=== PATIENT | male | born 1965 | race Caucasian/White ===

== ENCOUNTER 2021-01-19 10:22 | Outpatient (CLI) | payer OTHER, SELFPAY ==
--- NOTE | ~2021-01-19 | XR_ITS ---
XR lumbar spine min 4V DATE: 01/19/2021 11:21 INDICATION: Chronic bilateral lower back pain TECHNIQUE: AP, coned lateral lumbosacral views and flexion, extension and neutral upright lateral vie ws COMPARISON: None FINDINGS: There is minimal levoscoliosis of the lumbar spine. No fracture or bone destruction is evident. The lumbar pedicles are intact. There is minimal retrolisthesis at L3-4, stable in all positions. There is moderate degenerative disc disease of the lumbar spine, relatively sparing L5-S1. IMPRESSION: Moderate degenerative disc disease, with minimal retrolisthesis at L3-4 Minimal levoscoliosis Reviewed, dictated and finalized at location A.
--- NOTE | ~2021-01-19 | XR_ITS ---
XR thoracic spine 3V DATE: 01/19/2021 11:22 INDICATION: Thoracic spine pain TECHNIQUE: AP, lateral, swimmer views COMPARISON: None FINDINGS: There is minimal dextroscoliosis of the thoracic spine. There is degenerative spurring primarily at the mid and lower thoracic spine, including prominent daniel dging osteophytes. No fracture or bone destruction is evident. The thoracic pedicles are intact. No paraspinal soft tiss ue thickening. IMPRESSION: Minimal dextroscoliosis Degenerative spurring of the mid and lower thoracic spine Reviewed, dictated and finalized at location A.
== END 2021-01-19 10:23 | disposition home or self-care (01) ==
PROVIDERS: PCP Emergency Medicine; Visit Provider Emergency Medicine
DX: M54.5 Low back pain (principal); G89.29 Other chronic pain; M79.18 Myalgia, other site
CPT/HCPCS: 72072; 72110

== ENCOUNTER 2021-02-13 08:13 | Outpatient (CLI) | payer OTHER, SELFPAY ==
--- NOTE | ~2021-02-13 | MR_ITS ---
EXAMINATION: MR lumbar spine wo con EXAM DATE: 02/13/2021 10:09 INDICATION: Low back pain/middle back pain mid to low back pain x1yr, no known recent injury. TECHNIQUE: Multi-sequential, multiplanar MR images of the lumbar spine were obtained without contrast . Sagittal T1, T2, T2 fat saturation images. Axial T2 weighted images. Correlation is made to lumba r x-ray 01/19/2021. FINDINGS: Mild to moderate disc disease L2-S1. Vertebral body heights relatively well-maintained. The conus medullaris terminates at the L1 level and has normal signal intensity and morphology. The vanessa tebral bodies are aligned in the AP dimension. There are no suspicious marrow signal abnormalities. P araspinal soft tissue is unremarkable. Level by level evaluation: T12-L1: Disc does not extend beyond the endplate margin. Facet arthropathy: None. Neural foraminal stenosis: No stenosis. Central canal stenosis: No stenosis. L1-L2: Disc does not extend beyond the endplate margin. Facet arthropathy: Mild. Neural foraminal stenosis: No stenosis. Central canal stenosis: No stenosis. L2-L3: There is a mild diffuse disc bulge. Facet arthropathy: Mild. Neural foraminal stenosis: No stenosis. Central canal stenosis: No stenosis. L3-L4: There is a mild to moderate diffuse disc bulge. Facet arthropathy: Mild to moderate. Neural foraminal stenosis: Mild to moderate right, mild left. Central canal stenosis: Mild. L4-L5: There is a mild to moderate diffuse disc bulge. Facet arthropathy: Mild to moderate. Neural foraminal stenosis: Moderate bilateral. Central canal stenosis: Mild to moderate. L5-S1: There is a mild diffuse disc bulge. Facet arthropathy: Moderate to severe left, moderate right. Neural foraminal stenosis: Moderate left, mild to moderate right. Central canal stenosis: No stenosis. IMPRESSION: 1. Mild to moderate lumbar disc disease. 2. More advanced lower lumbar facet arthropathy. Reviewed, dictated and finalized at location A.
--- NOTE | ~2021-02-13 | MR_ITS ---
EXAMINATION: MR thoracic spine wo con EXAM DATE: 02/13/2021 10:10 INDICATION: Low back pain/middle back pain mid to low back pain x1yr. No known injury. TECHNIQUE: Multi-sequential, multiplanar MR images of the thoracic spine were obtained without contra st. Sagittal T1, T2, T2 fat saturation, axial T2 weighted images reviewed. There is no prior study for comparison. FINDINGS: There is mild to moderate mid and lower thoracic disc disease with small Schmorl's nodes an d some loss of these disc heights, small disc bulges. The thoracic central canal and neural foramen a re widely patent. The spinal cord signal intensity and intrinsic morphology is normal. In the right side of T9 vertebral body there is mild edema without acute fracture line identified, an d vertebral body height also appears maintained, but there potentially could be bone bruise or minima l compression causing this edema. The vertebral body marrow is otherwise normal in signal intensity. Paraspinal soft tissue is unremarkable. Mild diffuse thoracic facet arthropathy. IMPRESSION: 1. Mild edema mid left aspect of T9 vertebral body, could be bone contusion or minimal compression, but thoracic vertebral body heights are maintained. 2. Mild to moderate mid and lower thoracic disc disease. 3. Mild facet arthropathy. Reviewed, dictated and finalized at location A.
== END 2021-02-13 08:14 | disposition home or self-care (01) ==
PROVIDERS: PCP Emergency Medicine; Visit Provider Emergency Medicine
DX: M54.5 Low back pain (principal); G89.29 Other chronic pain; M54.6 Pain in thoracic spine
CPT/HCPCS: 72146; 72148